=== PATIENT | female | born 1975 | race Two or more races ===

== ENCOUNTER 2018-09-30 21:24 | Emergency (ER) | payer OTHER ==
[~2018-09-30] VITALS: Ht 157.5 cm; Wt 68.5 kg
[2018-09-30] MEDS ORDERED: BENZOCAINE (DENTAL) 20 % SPRAY 60ML MT ONE (22:30)
[2018-09-30] MEDS ORDERED: HYDROcodone-ACET 10/325MG TAB PO ONE (22:30)
[2018-09-30] MEDS ORDERED: cefTRIAXone SOD 1,000 MG VL IM ONE (22:30)
[2018-09-30 23:22] VITALS: BP 128/64
== END 2018-09-30 23:30 | disposition home or self-care (01) ==
LOC: ER 21:25
DX: K08.89 Other specified disorders of teeth and supporting structures (principal); F17.210 Nicotine dependence, cigarettes, uncomplicated
CPT/HCPCS: 96372; 99283; J0696